=== PATIENT | female | born 1980 | race Caucasian/White ===

== ENCOUNTER → 2020-09-18 | Outpatient (REF) | payer OTHER | LOC: M LAB REF 09:35 | PROVIDERS: ATTEND Physician Assistant | DX: N39.0 Urinary tract infection, site not specified (principal) ==

== ENCOUNTER → 2022-04-19 | Outpatient (CLI) | payer OTHER | LOC: M WHC 06:45 | PROVIDERS: ATTEND Physician Assistant | DX: Z12.31 Encounter for screening mammogram for malignant neoplasm of breast (principal) ==

== ENCOUNTER → 2024-01-13 | Outpatient (REF) | payer OTHER | LOC: M WUC 17:46 | PROVIDERS: ATTEND Student in an Organized Health Care Education/Training Program | DX: R30.0 Dysuria (principal); B95.7 Other staphylococcus as the cause of diseases classified elsewhere ==

== ENCOUNTER → 2024-04-18 | Outpatient (CLI) | payer OTHER | LOC: M WHC 06:58 | PROVIDERS: ATTEND Physician Assistant | DX: Z12.31 Encounter for screening mammogram for malignant neoplasm of breast (principal) ==

== ENCOUNTER → 2024-09-11 | Outpatient (REF) | payer OTHER | LOC: M SFHCDERM 11:07 | PROVIDERS: ATTEND Nurse Practitioner Family | DX: L30.9 Dermatitis, unspecified (principal) ==

== ENCOUNTER → 2024-09-13 | Outpatient (REF) | payer OTHER | LOC: M LAB REF 18:23 | PROVIDERS: ATTEND Physician Assistant | DX: R30.0 Dysuria (principal) ==

== ENCOUNTER → 2024-12-03 | Outpatient (REF) | payer OTHER | LOC: M LABCAHC 11:36 | PROVIDERS: ATTEND Physician Assistant | DX: Z12.4 Encounter for screening for malignant neoplasm of cervix (principal); Z01.419 Encounter for gynecological examination (general) (routine) without abnormal findings; Z77.9 Other contact with and (suspected) exposures hazardous to health ==

== ENCOUNTER → 2025-09-30 | Outpatient (CLI) | payer OTHER | LOC: M WHC 07:14 | PROVIDERS: ATTEND Nurse Practitioner Family | DX: Z12.31 Encounter for screening mammogram for malignant neoplasm of breast (principal); R92.333 Mammographic heterogeneous density, bilateral breasts ==